=== PATIENT | male | born 1995 | race Caucasian/White ===

== ENCOUNTER 2019-01-01 10:40 | Emergency (ER) | payer OTHER ==
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
[2019-01-01 12:03] VITALS: BP 127/90
== END 2019-01-01 12:02 | disposition home or self-care (01) ==
LOC: ED 10:40
DX: M25.562 Pain in left knee (principal); Z87.891 Personal history of nicotine dependence
CPT/HCPCS: 99282